=== PATIENT | female | born 1985 | race Caucasian/White ===

== ENCOUNTER → 2016-12-16 | Outpatient (CLI) | payer BC ==
[~2016-12-16] MED LIST: PRENTAB26 PO
[2016-12-16 18:24] LABS: PROLACTIN 1.35 ng/mL
== END | disposition home or self-care (01) ==
LOC: C.LAB1850 16:13
PROVIDERS: ATTEND Obstetrics & Gynecology
DX: Z31.41 Encounter for fertility testing (principal)

== ENCOUNTER → 2017-04-17 | Outpatient (CLI) | payer BC | END | disposition home or self-care (01) | LOC: C.LABPBG 11:26 | PROVIDERS: ATTEND Obstetrics & Gynecology | DX: Z32.00 Encounter for pregnancy test, result unknown (principal) ==

== ENCOUNTER → 2017-04-19 | Outpatient (CLI) | payer BC | END | disposition home or self-care (01) | LOC: C.LAB 11:39 | PROVIDERS: ATTEND Obstetrics & Gynecology | DX: Z32.00 Encounter for pregnancy test, result unknown (principal) ==

== ENCOUNTER → 2017-04-21 | Outpatient (CLI) | payer BC | END | disposition home or self-care (01) | LOC: C.LABPBG 12:26 | PROVIDERS: ATTEND Obstetrics & Gynecology | DX: Z32.00 Encounter for pregnancy test, result unknown (principal) ==

== ENCOUNTER → 2017-04-28 | Outpatient (CLI) | payer BC | END | disposition home or self-care (01) | LOC: C.LABPBG 10:07 | PROVIDERS: ATTEND Obstetrics & Gynecology | DX: O03.9 Complete or unspecified spontaneous abortion without complication (principal) ==

== ENCOUNTER → 2017-06-09 | Outpatient (CLI) | payer BC | LOC: C.LABPBG 09:40 | PROVIDERS: ATTEND Obstetrics & Gynecology | DX: Z32.00 Encounter for pregnancy test, result unknown (principal) ==

== ENCOUNTER → 2017-06-11 | Outpatient (CLI) | payer BC | END | disposition home or self-care (01) | LOC: C.LABPBG 10:00 | PROVIDERS: ATTEND Obstetrics & Gynecology | DX: Z32.00 Encounter for pregnancy test, result unknown (principal) ==

== ENCOUNTER → 2017-06-27 | Outpatient (CLI) | payer BC | END | disposition home or self-care (01) | LOC: C.LABSPEC 13:45 | PROVIDERS: ATTEND Obstetrics & Gynecology | DX: Z34.91 Encounter for supervision of normal pregnancy, unspecified, first trimester (principal) ==

== ENCOUNTER → 2017-07-01 | Outpatient (CLI) | payer BC ==
[2017-07-01 12:23] LABS: EOS % 0.4 %; EOS ABS # 0.02 K/uL (0-0.5); HEMATOCRIT 36.4 % (37-47); HEMOGLOBIN 12.9 g/dL (12.0-16.0); LYMPH % 18.9 %; MEAN CELL VOLUME 84.8 fL (80-100); MEAN CORPUSCULAR HEMOGLOBIN 30.1 pg (25-34); MEAN CORPUSCULAR HGB CONC 35.4 g/dl (32-36); MEAN PLATELET VOLUME 10.5 fL (7.4-10.4); MONO % 6.9 %; MONO ABS # 0.33 K/uL (0.11-0.59); NEUT % 73.8 %; NEUT ABS # 3.51 K/uL (1.4-6.5); PLATELET COUNT 201 K/uL (130-400); RED CELL DISTRIBUTION WIDTH SD 40.1 fL (36.4-46.3); WHITE BLOOD COUNT 4.76 K/uL (4.8-10.8)
== END | disposition home or self-care (01) ==
LOC: C.LAB1850 11:15
PROVIDERS: ATTEND Obstetrics & Gynecology
DX: R94.6 Abnormal results of thyroid function studies (principal); Z34.91 Encounter for supervision of normal pregnancy, unspecified, first trimester

== ENCOUNTER → 2017-07-01 | Outpatient (CLI) | payer BC | END | disposition home or self-care (01) | LOC: C.PAPS 13:42 | PROVIDERS: ATTEND Obstetrics & Gynecology | DX: Z34.91 Encounter for supervision of normal pregnancy, unspecified, first trimester (principal) ==

== ENCOUNTER 2018-02-17 22:37 | Inpatient (IN) ==
[2018-02-17] MEDS ORDERED: OXYTOCIN 30 UNITS/500 ML BAG IV PRN (23:13)
[2018-02-17] MEDS ORDERED: LACTATED RINGER'S 1,000 ML IV PRN (23:13)
[2018-02-17] MEDS ORDERED: LACTATED RINGER'S 1,000 ML IV SCH (23:15)
--- NOTE | 2018-02-17 23:30 | History & Physical Report ---
Date of Service February 17, 2018 Assessment & Plan (1) Supervision of other normal : Fetus: Cat 1 Labor: Progressing. Declining augmentation Vitals: wnl History of Present Illness Primary Care Provider: Rao Ayon MD 33yo at 40.2 weeks GA. Present with CTX, LOF, Denied VB. Good FM. Patient requested no IV. Discussed reason we recommended it including the risk of from heavy bleeding. Patient Agreed to IM pitocin and placement of an ID if heavier then normal bleeding were to occur Allergies Allergy/AdvReac Type Severity Reaction Status Date / Time No Known Allergies Allergy Unverified 07/28/15 00:59 Home Medications Home Medications Medication Instructions Recorded Confirmed Type vit-iron fum-folic ac PO 02/17/18 History [ Vitamin] Patient History Medical History Jewell teeth removed Social History marital status: Current Living Situation: Spouse and Family Other Information That Helps Us Care for You: No Feels Safe at Home: Yes Safety Concerns: Feels Safe At This Time Smoking Status: Never smoker Hx Alcohol Use: No Hx Substance Use: No Beliefs That Will Affect Care: None Preferred Language: [place] Communication Ability: Effective Vp Talent Management Required: No Physical Exam 2 Vital Signs (Past 24 Hours): Last Vital Signs Temp 36.8 C 02/17/18 22:57 Pulse 99 H 02/17/18 22:54 Resp 18 02/17/18 22:57 BP 124/58 L 02/17/18 22:54 Genitourinary: Manual OB Exam: + cervical dilation 7 cm, + cervical effacement 90% and + station + 1 OB Exam Monitor Tracing: + category I
[2018-02-18] MEDS ORDERED: BENZOCAINE 20% AER SPR 82.5 GM CAN EXT PRN (00:07)
[2018-02-18] MEDS ORDERED: HYDROCORTISONE ACETATE 25 MG SUPP PR PRN (00:07)
[2018-02-18] MEDS ORDERED: IBUPROFEN 600 MG TAB PO PRN (00:07)
[2018-02-18] MEDS ORDERED: ACETAMINOPHEN 325 MG TAB PO PRN (00:07)
[2018-02-18] MEDS ORDERED: OXYTOCIN 10 UNITS/ML VIAL IM PRN (00:07)
[2018-02-18] MEDS ORDERED: SUPERCREAM 0.870% 15 GM JAR EXT PRN (00:07)
[2018-02-18 01:28] LABS: Hematocrit (blood only) 35.7 % (37-47); Hemoglobin 12.6 g/dL (12.0-16.0); Mean Corpuscular Volume 90.2 fL (80-100); Platelet Count 176 K/uL (130-400); RDW Coefficient of Variation 13.3 % (11.5-14.5); RDW Standard Deviation 43.7 fL (36.4-46.3); Red Blood Count 3.96 M/uL (4.2-5.4)
[2018-02-18 01:33] LABS: Mean Corpuscular Hgb Conc 35.3 g/dL (32-36)
--- NOTE | 2018-02-18 06:34 | Obstetrical Progress Note ---
Date of Service <Singh Genao - Last Filed: 02/18/18 06:37> February 18, 2018 Assessment & Plan <Singh GenaoDO - Last Filed: 02/18/18 06:37> (1) Spontaneous vaginal delivery: 33 y/o, , GBS-, PPD #1, continue routine post- care Subjective <Singh Genao - Last Filed: 02/18/18 06:37> Ambulation: ambulating normally Voiding: no voiding problems Diet Tolerance:: regular diet Lochia:: Small Feeding Type:: breast feeding Maria R is doing well this morning, no fever, chills, shortness of breath, chest pain, calf pain. Physical Exam <Singh GenaoDO - Last Filed: 02/18/18 06:37> Vital Signs (Past 24 Hours) Last Vital Signs Temp 36.8 C 02/18/18 03:05 Pulse 89 02/18/18 03:05 Resp 16 02/18/18 03:05 BP 114/71 02/18/18 03:05 Pulse Ox 97 02/18/18 03:05 Constitutional WD/WN, vitals as above Eyes + anicteric sclerae Neck normal visual inspection and trachea midline Respiratory normal respiratory effort, lungs clear to auscultation Cardiovascular Rate/Rhythm: regular rate and regular rhythm Gastrointestinal (Abdomen) fundus firm 2-3 cm below umbilicus Musculoskeletal Head/Neck/Chest: normocephalic Skin no rashes, warm and dry Neurologic moves all extremities and awake Psychiatric A+Ox3, euthymic affect Results & Data <Singh GenaoDO - Last Filed: 02/18/18 06:37> Laboratory Results Laboratory Results - last 24 hr 02/18/18 02/18/18 01:21 01:21 WBC 15.30 H RBC 3.96 L Hgb 12.6 Hct 35.7 L MCV 90.2 MCH 31.8 MCHC 35.3 RDW Std Deviation 43.7 RDW Coeff of Nino 13.3 Plt Count 176 MPV 11.0 H Blood Type A Positive Antibody Screen NEGATIVE <Zack Green MD - Last Filed: 02/18/18 08:15> Co-Signing Physician Notes Patient seen and evaluated and agree with the above findings, assessment and plan.
[2018-02-18] MEDS: PRENATAL VITAMIN 1 TAB PO SCH (08:53)
[2018-02-18] MEDS: DOCUSATE SODIUM 100 MG CAP PO SCH ×2 (08:53→20:31)
[2018-02-18] MEDS ORDERED: BISACODYL 5 MG TABEC PO SCH (20:00)
[2018-02-18 20:03] VITALS: O2SAT 98
[2018-02-19] MEDS ORDERED: BISACODYL 10 MG SUPP PR PRN (06:00)
--- NOTE | 2018-02-19 06:39 | Obstetrical Progress Note ---
Date of Service <Singh GenaoDO - Last Filed: 02/19/18 06:39> February 19, 2018 Assessment & Plan <Singh GenaoDO - Last Filed: 02/19/18 06:39> (1) Spontaneous vaginal delivery: 33 y/o, , GBS-, PPD #1, continue routine post- care until discharge home today. Subjective <Singh DO Chadwick - Last Filed: 02/19/18 06:39> Ambulation: ambulating normally Voiding: no voiding problems Diet Tolerance:: regular diet Lochia:: Small Feeding Type:: breast feeding Maria R states she is doing well this morning, no acute events overnight, no complaints of chest pain, shortness of breath, fever, chills, nausea, vomiting. Physical Exam <Singh DO Chadwick - Last Filed: 02/19/18 06:39> Vital Signs (Past 24 Hours) Last Vital Signs Temp 36.7 C 02/19/18 00:26 Pulse 68 02/19/18 00:26 Resp 18 02/19/18 00:26 BP 106/66 02/19/18 00:26 Pulse Ox 98 02/18/18 19:45 Constitutional WD/WN, vitals as above Eyes + anicteric sclerae and EOM intact bilaterally Neck normal visual inspection and trachea midline Respiratory normal respiratory effort, lungs clear to auscultation Cardiovascular Rate/Rhythm: regular rate and regular rhythm Musculoskeletal Head/Neck/Chest: normocephalic Skin no rashes, warm and dry Neurologic moves all extremities and awake Psychiatric A+Ox3, euthymic affect Results & Data <DO Magaly Kim Last Filed: 02/19/18 06:39> Medications Administered Docusate Sodium (Colace) 100 mg PO BID [facility] Stop: 03/20/18 08:59 Last Admin: 02/18/18 20:31 Dose: Not Given Admin: 02/18/18 08:53 Dose: 100 mg Prenat Multivit/[place]/Iron/Folic Ac ( Vitamin) 1 tab PO QAM [facility] Stop: 03/20/18 08:59 Last Admin: 02/18/18 08:53 Dose: 1 tab <Ankit Nguyen MD, FACOG - Last Filed: 02/19/18 07:30> Co-Signing Physician Notes Resident Physician Supervision Note: I interviewed and examined the patient. Discussed with Dr. Bello and agree with findings and plan as documented in the note. Any exceptions or clarifications are listed here: [None] Documented By: Ankit Nguyen MD, FACOG
[2018-02-19] MEDS: PRENATAL VITAMIN 1 TAB PO SCH (08:08)
[2018-02-19] MEDS: DOCUSATE SODIUM 100 MG CAP PO SCH (08:09)
[2018-02-19 08:29] VITALS: BP 113/72; PULSE 80; TEMP 97.5
[2018-02-19] MEDS ORDERED: DIPHTHERIA/TETANUS/PERTUSSIS 0.5 ML SYR/VIAL IM ONE (09:00)
--- NOTE | 2018-02-27 16:44 | Delivery Summary ---
DATE OF OPERATION: 02/17/2018 PROCEDURE: Normal spontaneous vaginal delivery. SURGEON: Zack Green MD. PREOPERATIVE DIAGNOSIS: Single intrauterine at 40 weeks 2 days gestational age. POSTOPERATIVE DIAGNOSES: Single intrauterine at 40 weeks 2 days gestational age, delivered. ESTIMATED BLOOD LOSS: 200 mL. DRAINS: None. FLUIDS: None. URINE OUTPUT: Not measured. FINDINGS: Viable with Apgars of 8 and 9 at 1 and 5 minutes respectively, weight pending. INDICATIONS: Ms. Lu is a 33-year-old G4, P2-0-1-2 who is admitted at 40 weeks 2 days gestational age in active labor. Patient was noted to be 6 cm dilated, 90% effaced, 0 station at the time of admission. She progressed in labor without augmentation to complete, complete, +2, in approximately 30 minutes. DESCRIPTION OF PROCEDURE: The patient progressed to 10 cm dilated, 100% effaced, +2 station. Pushed over intact perineum without anesthesia and delivered a viable with Apgars as noted above. Head of the delivered in LEATHA presentation, restituted to right transverse. No nuchal cord was noted. Body and shoulders quickly followed. was noted to be vigorous soon after delivery. A 90 second delayed cord clamping was initiated. The cord was doubly clamped and cut. Attention was then turned to vagina, perineum, and cervix for inspection. There were noted to be no lacerations. Attention was then turned to delivery of the placenta which was delivered intact with 3-vessel cord with gentle cord traction. Instrument and sponge counts were correct at the completion of the case. Both mother and were in stable condition in the immediate period. I attest to the content of the Intraoperative Record and any orders documented therein. Any exception s are noted below.
== END 2018-02-19 09:50 | disposition home or self-care (01) | DRG 807 ==
LOC: OPB 22:37 → 4S1 22:39 → 4S2 02-18 02:20